=== PATIENT | male | born 1965 | race Caucasian/White ===

== ENCOUNTER → 2016-05-18 | Outpatient (CLI) | payer BC ==
[~2016-05-18] MED LIST: GADAVIST IV PRN; PRLSR20 PO
--- NOTE | 2016-05-18 09:18 | DIAGNOSTIC IMAGING REPORT ---
MRI OF THE PELVIS WITH AND WITHOUT CONTRAST CLINICAL HISTORY: Urachal cancer. COMPARISON STUDY: MRI of the pelvis August 28, [address] of the abdomen and pelvis October 01, 2015. TECHNIQUE: Utilizing 1.5 Khadijah magnet and dedicated coil, multiplanar, multiecho imaging of the pelvis was performed pre and postcontrast administration. Injection of 9.2 cc of Gadavist IV was uneventful. FINDINGS: No pelvic lymphadenopathy is present. No marrow replacement is identified within visualized skeletal structures. No bladder mass is identified by MRI. There is no ascites. No fluid collection is identified within the pelvis. The appearance of the pelvis is unchanged as MRI August 28, 2015. No residual urachal remnant is identified on this examination. IMPRESSION: No evidence of recurrent malignancy within the pelvis. Electronically signed by: Adrián Cutler M.D. 05/18/2016 9:17 AM Dictated Date/Time: 05/18/2016 9:09 AM
== END | disposition home or self-care (01) ==
LOC: C.MRI 07:39
PROVIDERS: ATTEND Urology
DX: C67.7 Malignant neoplasm of urachus (principal); Q64.4 Malformation of urachus

== ENCOUNTER → 2016-06-11 | Outpatient (CLI) | payer BC ==
[~2016-06-11] MED LIST changes: -GADAVIST IV PRN
--- NOTE | 2016-06-11 09:28 | DIAGNOSTIC IMAGING REPORT ---
CHEST 2 VIEWS ROUTINE CLINICAL HISTORY: PRIMARY URACHAL MALIGNANCY COMPARISON STUDY: 09/29/2013 FINDINGS: The heart is the upper limits of normal in size. There is mild right hilar prominence, consistent with the patient's known adenopathy. There is no focal pulmonary consolidation. There are no pleural effusions.[ IMPRESSION: 1. Stable mild hilar adenopathy 2. No evidence of acute parenchymal consolidation Electronically signed by: Ab Rodriguez M.D. 06/11/2016 9:26 AM Dictated Date/Time: 06/11/2016 9:25 AM
== END | disposition home or self-care (01) ==
LOC: C.RAD 09:07
PROVIDERS: ATTEND Nurse Practitioner Family
DX: C67.7 Malignant neoplasm of urachus (principal)

== ENCOUNTER → 2016-09-15 | Outpatient (CLI) | payer BC | END | disposition home or self-care (01) | LOC: C.PATHSPEC 17:27 | PROVIDERS: ATTEND Urology | DX: R31.0 Gross hematuria (principal); C67.7 Malignant neoplasm of urachus; Q64.4 Malformation of urachus ==

== ENCOUNTER → 2016-11-16 | Outpatient (CLI) | payer BC ==
[~2016-11-16] MED LIST changes: +OPTIRAY 320 IV PRN
--- NOTE | 2016-11-16 10:51 | DIAGNOSTIC IMAGING REPORT ---
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 TECHNIQUE: Multidetector CT of the abdomen and pelvis was performed before and after the administration of intravenous contrast. IV contrast: 94 mL of Optiray 320. A dose lowering technique was used consistent with the principles of ALARA (as low as reasonably achievable). COMPARISON: 10/01/2015. CT DOSE (mGy.cm): The estimated cumulative dose is 989.16 mGy.cm. 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 Lung bases: Lung bases clear. Normal heart size. No pericardial or pleural effusion. Liver: Normal morphology. Density consistent with hepatic steatosis. No focal lesion. Patent hepatic vasculature. Biliary: No intrahepatic or extrahepatic biliary ductal dilatation. Gallbladder surgically absent. Pancreas: Normal. Spleen: Normal. Adrenal glands: Normal. Kidneys and ureters: Normal. No hydronephrosis. No filling defect within the urinary collecting system. Ureters normal. Bladder: Normal. No evidence of an intraluminal mass. No soft tissue at the bladder dome or along the expected course of a ureteral remnant. Pelvic organs: Prostate and seminal vesicles normal. Bowel: Normal. No bowel obstruction. Small hiatal hernia. Peritoneal cavity: No free fluid or intraperitoneal gas. Vasculature: Aorta and IVC patent and normal in caliber. Lymph nodes: No enlarged lymph nodes in the abdomen or pelvis. Abdominal wall: Postsurgical changes along the anterior midline lower abdominal wall. No associated suspicious nodular soft tissue. Musculoskeletal: Degenerative changes of the spine. Lucent lesion in the left ischium is unchanged, likely indicating benignity. IMPRESSION: 1. Postsurgical changes of the anterior lower abdominal wall without suspicious soft tissue nodularity to suggest recurrent disease. 2. Hepatic steatosis. Electronically signed by: Chino Brewster M.D. 11/16/2016 10:50 AM Dictated Date/Time: 11/16/2016 10:42 AM
== END | disposition home or self-care (01) ==
LOC: C.CTS 09:42
PROVIDERS: ATTEND Urology
DX: C67.7 Malignant neoplasm of urachus (principal); Z98.890 Other specified postprocedural states; K76.0 Fatty (change of) liver, not elsewhere classified

== ENCOUNTER → 2016-12-02 | Outpatient (CLI) | payer BC ==
--- NOTE | 2016-12-02 16:19 | DIAGNOSTIC IMAGING REPORT ---
CT ABD/PELVIS IV AND ORAL CONT CLINICAL HISTORY: URACHAL MALIGNANCY COMPARISON STUDY: 11/16/2016 TECHNIQUE: Following the IV administration of 119 mL of Optiray-320, CT scan of the abdomen and pelvis was performed from the lung bases to the proximal femurs. Images are reviewed in the axial, sagittal, and coronal planes. IV contrast was administered without complication. A dose lowering technique was utilized adhering to the principles of ALARA. CT DOSE: FINDINGS: Lower chest: The heart is normal in size and configuration, without pericardial effusion. The lung bases and pleural spaces are clear. Liver: There is hepatic steatosis. No focal masses are visualized. Gallbladder: Surgically absent Spleen: Normal in size and attenuation. Pancreas: Unremarkable. Adrenal glands: Unremarkable. Kidneys: There is symmetric renal cortical enhancement. The kidneys are normal in size without hydronephrosis. Bowel: There are no transition zones indicate bowel obstruction. There is no acute diverticulitis. There is no acute appendicitis. Peritoneum: There is no intraperitoneal free air or abdominal ascites. Vasculature: The abdominal aorta is normal in course and caliber. Adenopathy: Multiple surgical clips are present within the pelvis. There are no pathologically enlarged pelvic lymph nodes. Pelvic viscera: The bladder was not well-distended. This likely explains the mild bladder wall thickening. Skeletal structures: There is a stable 14 mm mixed lytic and isodense lesion involving the left ischium. This remains unchanged from April 2015. This is likely benign. Postsurgical changes are present within the anterior abdominal wall. IMPRESSION: 1. No change from the prior study. No evidence of metastatic disease 2. Hepatic steatosis Electronically signed by: Ab Rodriguez M.D. 12/02/2016 4:17 PM Dictated Date/Time: 12/02/2016 4:10 PM
--- NOTE | 2016-12-02 16:21 | DIAGNOSTIC IMAGING REPORT ---
CT OF THE CHEST WITH IV CONTRAST CLINICAL HISTORY: URACHAL MALIGNANCY. COMPARISON STUDY: Chest CT October 01, 2015 and chest radiograph June 11, 2016. TECHNIQUE: Following IV administration of 119 mL of Optiray-320, helical axial images of the chest were obtained. Sagittal and coronal reconstructions were viewed as well as maximal intensity projections on an independent 3-D workstation. A dose lowering technique was utilized adhering to the principles of ALARA. CT DOSE: 1426.90 mGy.cm FINDINGS: Mildly enlarged bilateral hilar and mediastinal lymph nodes are unchanged since exam of October 04, 2013. Therefore, these do not reflect metastatic disease. The size of the heart is normal. There is no pericardial effusion. Central airways are patent. There are no suspicious pulmonary nodules. No consolidation is present. There is no pneumothorax or pleural effusion. There are no suspicious osseous lesions. Probable fatty infiltration of the liver is noted. The abdomen and pelvis will be reported separately. IMPRESSION: 1. No evidence of metastatic disease within the chest. 2. No change in mild mediastinal and bilateral hilar lymphadenopathy since CT of October 04, 2013. Therefore, this does not reflect metastatic disease. Electronically signed by: Adrián Cutler M.D. 12/02/2016 4:20 PM Dictated Date/Time: 12/02/2016 4:09 PM
== END | disposition home or self-care (01) ==
LOC: C.CTS 15:41
PROVIDERS: ATTEND Nurse Practitioner Family
DX: C67.7 Malignant neoplasm of urachus (principal); K76.0 Fatty (change of) liver, not elsewhere classified

== ENCOUNTER → 2017-07-13 | Outpatient (CLI) | payer OTHER ==
[~2017-07-13] MED LIST changes: -OPTIRAY 320 IV PRN
--- NOTE | 2017-07-13 12:27 | DIAGNOSTIC IMAGING REPORT ---
LEFT KNEE 2 VIEWS HISTORY: ACUTE PAIN LEFT KNEE COMPARISON: None. FINDINGS: There is no fracture or dislocation. Soft tissues are unremarkable. Suspect a small knee effusion. IMPRESSION: Small knee effusion. No fracture or dislocation. Electronically signed by: Smith Groves M.D. 07/13/2017 12:26 PM Dictated Date/Time: 07/13/2017 12:25 PM
== END | disposition home or self-care (01) ==
LOC: C.RAD1850 11:57
PROVIDERS: ATTEND Family Medicine
DX: M25.462 Effusion, left knee (principal); Z88.1 Allergy status to other antibiotic agents